=== PATIENT | female | born 1965 | race Caucasian/White ===

== ENCOUNTER 2024-09-25 00:08 | Emergency (ER) | payer BC, SELFPAY ==
[2024-09-25 00:11] VITALS: BP 160/101
[2024-09-25 00:48] VITALS: BP 119/73; BMI 30.1
--- NOTE | 2024-09-25 01:20 | ED.GENMED ---
History of Present Illness
General
Chief Complaint: Back Pain
Source: patient
Exam Limitations: none
Time Seen by Provider: 09/25/24 00:53
Nursing documentation reviewed up to this point in time: agreed with
History of Present Illness
History of Present Illness:
59-year-old female with history as documented presents to the ER for evaluation of back pain. Patient reports onset of symptoms Friday that she says that she was sitting on a stool at work and she fell backwards onto her low back. She says that
she has been having pain in the low back since. She says pain radiates across the low back. She has associated paresthesias that radiate down the back of her legs bilaterally. She denies any numbness or weakness in the legs at present although
she says that earlier today after she took a nap on the couch and woke up she had some transient leg weakness that resolved. She denies any incontinence of bowel or bladder. She denies any saddle anesthesia. She denies any fevers or chills. She
denies any other complaints. She does have prior history of thoracic and lumbar laminectomy.
Past History
Past History
ED Past Medical History: Asthma (Reactive airway, Interstitial lung disease) and Other (Ulcers, RA)
ED Past Surgical History: Appendectomy
Social History
Tobacco: Former smoker
Alcohol: Occasional
Personal: Single
Living: with family
Review of Systems
Review of Systems
All Other Systems: ROS reviewed and negative except as documented in HPI and ROS
Constitutional: Denies fever or chills
Musculoskeletal: Reports back pain
Neurological: Reports other (Paresthesias); Denies weakness or numbness
Phy Exam
Physical Exam
Physical Exam:
General: Awake, alert, oriented x3; no acute distress
Head: Normocephalic, atraumatic
Eyes: Conjunctiva normal
Throat: Airway intact, handling secretions
Neck: Trachea midline
Lungs: Breathing comfortably no distress, no accessory muscle use or cyanosis
Heart: Regular rate
Abd: Soft, non distended, nontender
Back: Patient has scoliosis, no midline tenderness of the thoracic or lumbar spine
Neuro: Cranial nerves grossly intact, speech fluid, motor and sensory function is intact and symmetric proximally and distally in the lower extremities bilaterally
Extremities: No edema in extremities, equal pulses in all extremities
Scores
Heart Failure Risk
Heart Failure Risk Score: Not Applicable
Heart Score for Chest Pain Patients
STEMI patient?: Not applicable
Withdrawal Assessment of Alcohol
Withdrawal Assessment Completed?: Not applicable
Course
Orders/Labs/Results
Orders:
Orders
09/25/24 01:19
CT Lumbar Spine W/o Iv Contras Urgent
Comment:
Reason For Exam: fall with low back pain
Vital Signs
Initial and Last Documented VS:
Initial Vital Signs
Temp Pulse Resp BP Pulse Ox
36.5 C 94 20 160/101 96
09/25/24 00:11 09/25/24 00:11 09/25/24 00:11 09/25/24 00:11 09/25/24 00:11
Last Documented Vital Signs
Temp Pulse Resp BP Pulse Ox
36.6 C 66 18 134/80 98
09/25/24 02:57 09/25/24 02:57 09/25/24 02:57 09/25/24 02:57 09/25/24 02:57
MDM/Problems Addressed
Differential Diagnosis Includes:
Myofascial strain, lumbosacral radiculopathy, very low clinical suspicion for spinal emergency including cauda equina syndrome
MDM/Problems Addressed:
59-year-old female presents for evaluation of low back pain after a fall on Friday with associated paresthesias in the legs. Vitals and exam as above. No retained urine on bladder scan. Check CT of the lumbar spine. Offered pain control, patient
declined. Reassess after the above.
CT negative for any acute pathology. Patient resting comfortably, vital stable. I had a long discussion with the patient�explained the limitations of CT compared to MRI. I explained that at this point my clinical suspicion for spinal emergency is
very low and in my judgment urgent/emergent MRI is not indicated at this point in time. Nevertheless acknowledging limitations of CT I did offer to keep patient for MRI. She feels comfortable with foregoing ED MRI and following up with her doctor
as an outpatient. I did stress to her that if she has any change in her symptoms or certainly if she develops any weakness or numbness, incontinence, worsening pain or any other red flags that she should immediately return to the emergency room.
She indicated understanding. She feels comfortable with [id number] pain control measures. Using shared decision making we will discharge with outpatient follow-up and strict return precautions.
Acute Exacerbation and/or Progression of Chronic Illness:
Acutely hypertensive in triage resolved without intervention continue to monitor but no indication for emergent antihypertensives
Acute Exacerbation and/or Progression of Chronic Illness: HTN
*Radiology
Radiology exam reviewed: radiology read reviewed
*Pulse Oximetry
Patient hypoxic: no
*Critical Care Note
Total Time (30-74mins, 75-104mins- exclusive of procedures): Not Applicable
Data Reviewed
Source: patient and records
ED Attending Note
-
Portions of this chart may have been created with voice recognition software.� Occasional wrong word or��sound alike� substitutions may have occurred due to the inherent limitations of voice recognition software.
Discharge Plan
Departure
Patient Disposition: Home (Routine Discharge)
Date of Disposition: 09/25/24
Time of Disposition: 03:45
Patient with high blood pressure during this ER visit?: Yes
Discharge Problem:
Low back pain
Instructions: Low Back Pain (DC)
Prescriptions:
No Action
estradiol 0.5 MG tablet
0.5 mg PO DAILY
hydroxychloroquine 200 MG tablet
200 mg PO BID
docosahexaenoic acid-epa 1 CAP capsule
1 cap PO DAILY
abatacept [Orencia] 125 MG/ML syringe
125 mg SQ TH
Glucosamine HCl
2 tab PO DAILY
Leflunomide
1 tab PO DAILY
Progesterone
1 tab PO DAILY
hydrocodone-homatropine [Hycodan (with homatropine)] 5 ML syrup
5 ml PO Q4HPRN PRN (Reason: Cough) Qty: 60 0RF
prednisone 20 MG tablet
40 mg PO DAILY Qty: 6 0RF
azithromycin 250 MG tablet
250 mg PO DAILY Qty: 6 0RF
Rx Instructions:
Please take 2 tabs on the first day and then one tablet daily until finished .
fluticasone propionate [Flovent HFA] 1 PUFF HFA aerosol inhaler
2 puff inhalation R BID Qty: 1 0RF
hydrocodone-homatropine [Hycodan (with homatropine)] 5 ML syrup
5 ml PO Q4HPRN PRN (Reason: persistent cough) Qty: 60 0RF
oxycodone-acetaminophen 5 MG/325 MG tablet
1 tab PO Q4HPRN PRN (Reason: pain) Qty: 8 0RF
Referrals:
Rick Kendall MD [Family Provider] - Call in 1-3 days for appt
Activity Restrictions/Additional Instructions:
If you develop any numbness in your legs, weakness in your legs, incontinence of urine or stool, numbness in your groin, worsening pain, fever or any other concerning symptoms please immediately return to the emergency to be reassessed!
Thank you for visiting the Emergency Department at [facility].
1. Please schedule a follow up appointment as directed. Call first thing tomorrow morning to make an appointment.
2. If indicated, please take your medications as instructed and indicated on discharge paperwork.
3. If any of your symptoms do not improve, or persist, or become more severe within 6-12 hours, please return to the emergency department for further care.
4. Please return to the emergency department if you develop a headache, neck pain/stiffness, fever greater than 100.4F, chest pain, shortness of breath, persistent nausea, vomiting, slurred speech, difficulty walking, numbness/tingling, weakness,
signs of infection or any other symptoms that are worrisome to you.
Please call [phone] if you have any questions.
Interventions
Interventions:
*Risk Screen - Suicide Last Done: 09/25/24 00:11
*General Assessment Last Done: 09/25/24 00:11
*Neglect/Abuse Screening Last Done: 09/25/24 00:11
ED- Fall Risk Assessment Last Done: 09/25/24 00:11
*ED COVID-19 Vaccine History Last Done: 09/25/24 00:11
ED-Musculoskeletal Assessment Last Done: 09/25/24 01:00
Discharge Date and Time
Print Language: [place]
[2024-09-25 02:57] VITALS: BP 134/80
== END 2024-09-25 04:08 | disposition home or self-care (01) ==
LOC: EMR 00:08
PROVIDERS: EMERGENCY PHYSICIAN Emergency Medicine; FAMILY PHYSICIAN Internal Medicine
DX: M54.50 Low back pain, unspecified (principal); R20.2 Paresthesia of skin; W08.XXXA Fall from other furniture, initial encounter; Y93.89 Activity, other specified; Y92.89 Other specified places as the place of occurrence of the external cause; Y99.0 Civilian activity done for income or pay; I10 Essential (primary) hypertension; M41.9 Scoliosis, unspecified; J45.909 Unspecified asthma, uncomplicated; M06.9 Rheumatoid arthritis, unspecified; Z87.891 Personal history of nicotine dependence
CPT/HCPCS: 99284; 51798; 72131